=== PATIENT | female | born 1950 | race Asian ===

== ENCOUNTER → 2016-09-29 | Outpatient (CLI) | payer MEDICARE ==
[~2016-09-29] MED LIST: AMIO200T42 PO; AMLO5TAB2 PO; ASPI-13 PO; DIGO125T10 PO; FURO-93 PO; LEVO50TA PO; MESA500C PO; PANT40TA3 PO; SERT50TA5 PO; SIMV40TA3 PO
== END | disposition home or self-care (01) ==
LOC: CFH 10:02
PROVIDERS: ATTEND Internal Medicine Cardiovascular Disease
DX: Z95.2 Presence of prosthetic heart valve (principal)
CPT/HCPCS: 93306

== ENCOUNTER 2020-07-12 13:37 | Emergency (ER) | payer MEDICARE, OTHER ==
[~2020-07-12] VITALS: Ht 152.4 cm; Wt 64.0 kg
[~2020-07-12 13:37] MED LIST changes: +AMLO-150 PO; -AMLO5TAB2 PO; +SERT50TA28 PO; -SERT50TA5 PO; +SIMV40TA20 PO; -SIMV40TA3 PO
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
[2020-07-12] MEDS ORDERED: OXYcodone/APAP 5/325MG TABLET ONE (14:42)
--- NOTE | 2020-07-12 14:54 | NUR ---
PATIENT MEDICATED PER eMAR, NADN, VSS, CALL LIGHT WITHIN REACH.
[2020-07-12] MEDS ORDERED: OXYcodone/APAP 5/325MG TABLET PO ONE (15:00)
--- NOTE | 2020-07-12 15:15 | NUR ---
PATIENT AMBULATED TO BATHROOM WITH STEADY GAIT.
--- NOTE | 2020-07-12 15:45 | NUR ---
PATIENT RESTING IN GURNEY, ASKING FOR SOMETHING TO DRINK, HOT TEA PROVIDED, NADN, PAIN LEVEL IS DOWN FROM A 10/10 TO A 8/10, VSS, CALL LIGHT WITHIN REACH.
--- NOTE | 2020-07-12 15:56 | NUR ---
ERMD AT BEDSIDE TO DISCUSS POC.
--- NOTE | 2020-07-12 16:07 | NUR ---
PATIENT TO IMAGING.
--- NOTE | 2020-07-12 16:52 | NUR ---
PATIENT TO IMAGING FOR SWALLOW STUDY.
--- NOTE | 2020-07-12 17:15 | NUR ---
PATIENT BACK FROM ESOPHAGRAM, NADN, VSS, HOT WATER PROVIDED FOR TEA, CALL LIGHT WITHIN REACH.
[2020-07-12 17:16] VITALS: BP 164/75
--- NOTE | 2020-07-12 17:23 | NUR ---
ERMD AT BEDSIDE TO DISCUSS POC.
--- NOTE | 2020-07-12 17:56 | NUR ---
PATIENT AMBULATED TO BATHROOM AND BACK TO [facility] WITH STEADY GAIT.
--- NOTE | 2020-07-12 18:20 | NUR ---
Patient given discharge instructions and prescription and they have confirmed that they understand the instructions, controlled substance contract signed. Patient stable and ambulatory with steady gait from ED.
== END 2020-07-12 18:21 | disposition home or self-care (01) ==
LOC: ED 18:00
DX: S22.42XA Multiple fractures of ribs, left side, initial encounter for closed fracture (principal); K22.8 Other specified diseases of esophagus; R07.89 Other chest pain; R06.02 Shortness of breath; I49.3 Ventricular premature depolarization; R13.10 Dysphagia, unspecified; Z95.0 Presence of cardiac pacemaker; X58.XXXA Exposure to other specified factors, initial encounter; Y93.89 Activity, other specified; Y92.89 Other specified places as the place of occurrence of the external cause; Y99.8 Other external cause status
CPT/HCPCS: 71046; 74220; 93005; 99285